=== PATIENT | male | born 1965 | race Caucasian/White ===

== ENCOUNTER 2023-03-17 09:09 | Outpatient (CLI) | payer OTHER ==
[~2023-03-17 09:09] MED LIST: GILTUSS TR TAB1 EACH PO; N
== END 2023-03-17 09:20 | disposition home or self-care (01) ==
LOC: TOM 09:09
PROVIDERS: ATTEND Internal Medicine
DX: H60.533 Acute contact otitis externa, bilateral (principal); M62.838 Other muscle spasm; M62.830 Muscle spasm of back